=== PATIENT | female | born 1995 | race Caucasian/White ===

== ENCOUNTER 2022-11-30 10:09 | Emergency (ER) | payer OTHER, SELFPAY ==
--- NOTE | ~2022-11-30 | US_ITS ---
EXAMINATION: US OB <= 14 weeks fetus DATE: 11/30/2022 11:09 INDICATION: Abdominal pain during TECHNIQUE: Real-time pelvic ultrasound utilizing transabdominal probe was performed. The juan pablo green radiologist was not present for the study. COMPARISON: None. FINDINGS: The uterus measures 10.8 x 6.5 x 7.9 cm. There is an intrauterine gestational sac. A yolk sac and fe yfn pole are identified. The crown rump length measures 5.9 cm, which correlates with an estimated ge stational age of 12 weeks and 3 days. heart motion is identified measuring 169 beats per minute (bpm) by M-mode Doppler. The right ovary is not visualized. The left ovary measures 4.0 x 1.6 x 1.7 cm. Vascular flow identifi ed in the left ovary on color Doppler. There is no free fluid in the pelvis. IMPRESSION: 1. Single living fetus with heart rate of 169 bpm. 2. Gestational age by ultrasound of 12 weeks 3 day(s) +/- 1 week and 1 day with ultrasound estimated date of delivery (JAYLAN) of 06/11/2023. Reviewed, dictated and finalized at location A. IMPRESSION: 1. Single living fetus with heart rate of 169 bpm. 2. Gestational age by ultrasound of 12 weeks 3 day(s) +/- 1 week and 1 day wit h ultrasound estimated date of delivery (JAYLAN) of 06/11/2023.
[2022-11-30 10:13] VITALS: BP 137/73; PULSE 101; RESP 20; TEMP 36.2; O2SAT 100
--- NOTE | 2022-11-30 10:29 | ED.NAVMDI ---
HPI - Nausea/Vomiting/Diarrhea General Chief complaint: Nausea/Vomiting/Diarrhea Stated complaint: 12 wks preg, n/v Time Seen by Provider: 11/30/22 10:16 History of Present Illness HPI Narrative: Patient is a 27-year-old female who is currently about 12 weeks here for evaluation of nausea and vomiting. Patient states she has been unable to tolerate any p.o. over the past 12 hours and has vomited about 15 times. She has attempted Zofran without relief. Currently also being treated for UTI by her MESH CUTTER. Is having diffuse lower abdominal pain. She contacted her AUTO PHONE INSTALLER Dr. Peterson who recommended ED eval. She denies any vaginal bleeding, dysuria, back pain, fevers or chills, diarrhea. She has had an ultrasound that confirms IUP. Related Data Allergies Allergy/AdvReac Type Severity Reaction Status Date / Time No Known Allergies Allergy Verified 11/30/22 10:23 Review of Systems Review of Systems: Gen.: Denies fevers or chills Eyes: Denies eye pain or visual change ENT: Denies congestion Respiratory: Denies shortness of breath or cough CV: Denies chest pain or palpitations GI: Reports nausea and vomiting denies burning, urgency, frequency or hematuria Musculoskeletal: Denies back pain or muscle pain Neuro: Denies numbness, tingling, weakness or focal weakness Skin: Denies rash Except as documented, all other systems reviewed and negative Exam Narrative: APPEARANCE: Well appearing, no pain in distress, well-nourished. Head: Normocephalic and atraumatic. EYES: PERRLA/EOMI, conjunctivae clear NOSE: No nasal drainage EARS: External ear normal in appearance THROAT: Oropharynx is clear. Mucous membranes are moist. NECK: Supple. No adenopathy, no masses. RESPIRATORY: Airway patent, respirations nonlabored. Clear to auscultation bilaterally, no rales, rhonchi, wheezing. CARDIOVASCULAR: Regular rate and rhythm without murmurs, rubs, or gallops. ABDOMINAL: Normoactive bowel sounds. Soft, nontender, nondistended. No rebound tenderness or guarding. MUSCULOSKELETAL: Extremities are warm and well-perfused. Moves all extremities well. No edema. NEURO: Normal speech. No focal neurologic deficits. SKIN: Skin is warm and dry. No rashes. PSYCHIATRIC: Normal affect/mood. Course Vital Signs Vital signs: Vital Signs Temperature 97.2 F L 11/30/22 10:13 Pulse Rate 101 H 11/30/22 10:13 Respiratory Rate 20 11/30/22 10:13 Blood Pressure 137/73 11/30/22 10:13 Pulse Oximetry 100 11/30/22 10:13 Oxygen Delivery Room Air 11/30/22 10:13 Temperature 97.2 F L 11/30/22 10:13 Pulse Rate 68 11/30/22 12:24 Respiratory Rate 16 11/30/22 12:24 Blood Pressure 116/72 11/30/22 12:24 Pulse Oximetry 100 11/30/22 12:24 Oxygen Delivery Room Air 11/30/22 10:13 MDM - Nausea/Vomiting/Diarrhea MDM Narrative Medical decision making narrative: 27-year-old G1, P0 female who is currently 12 weeks here for evaluation of intractable nausea and vomiting over the past 3 days. Patient is nontoxic in appearance and has normal vital signs. Unable to Doppler heart tones at bedside which may be normal for 12 weeks but given patient's presence of mild abdominal pain and symptoms today a formal ultrasound was ordered which was normal. Patient has a white count of 11.4, basic labs otherwise unremarkable. She is being treated as an outpatient with Keflex for UTI, her urine does show evidence of this with bacteria, white blood cells and leuks. Patient was given 2 L of fluids, Reglan and Benadryl with improvement of her symptoms, able to tolerate p.o.. Spoke with Dr. Peterson, patient's MESH CUTTER, agrees with plan for outpatient Reglan and follow-up. Return precautions were discussed with patient who voiced understanding. Lab Data 11/30/22 10:32 11/30/22 10:32 Labs: Lab Results 11/30/22 11/30/22 11/30/22 Range/Units 10:32 10:32 10:32 WBC 11.4 H (4.5-10.0) K/mm3 RBC 4.73
[2022-11-30] MEDS: LACTATED RINGERS 1,000 ML 999 ML IV CONT ×2 (10:40→11:25)
[2022-11-30 10:41] LABS: Basophils Absolute Auto 0.1 K/mm3 (0.0-0.1); Basophils Percent Auto 0.5 % (0.2-1.2); Eosinophils Percent Auto 0.3 % (0-4.4); Hematocrit 41.8 % (37.0-47.0); Immature Granulocyte Absolute 0.04 K/mm3 (0.00-0.031); Immature Granulocyte Percent A 0.4 % (0-0.5); Lymphocytes Percent Auto 10.5 % (18.3-44.2); Mean Corpuscular HGB Conc 33.5 g/dl (32-36); Mean Corpuscular Hemoglobin 29.6 pg (26-34); Mean Corpuscular Volume 88.4 fl (80-100); Mean Platelet Volume 9.5 fl (7.4-10.4); Monocytes Absolute Auto 0.5 K/mm3 (0.1-0.6); Neutrophils Absolute Auto 9.6 K/mm3 (1.3-6.7); Neutrophils Percent Auto 84.3 % (45.5-73.1); Platelet Count Result 387 k/mm3 (150-375); Red Blood Count 4.73 M/mm3 (4.2-5.4); Red Cell Distribution Width 12.6 % (11.5-14.5); White Blood Count 11.4 K/mm3 (4.5-10.0)
[2022-11-30] MEDS: diphenhydrAMINE HCl INJ 50 MG/ML VIAL 12.5 MG IV PUSH (10:41)
[2022-11-30] MEDS: METOCLOPRAMIDE HCL INJ 10 MG/2 ML VIAL IV PUSH (10:43)
[2022-11-30 10:57] LABS: Alanine Aminotransferase 18 U/L (6-35); Alkaline Phosphatase 95 U/L (38-126); Anion Gap 7 mmol/L (8-16); Aspartate Amino Transferase 21 U/L (14-36); Bilirubin,Total 0.5 mg/dL (0.2-1.3); Blood Urea Nitrogen 7 mg/dL (7-17); Carbon Dioxide 22 mmol/L (22-30); Chloride 110 mmol/L (98-107); Estimated CRCL calculation 153 ml/min; Estimated Glomerular Filt Rate > 60; Glucose 88 mg/dL (65-110); Potassium 3.9 mmol/L (3.4-5.0); Sodium 139 mmol/L (137-145)
[2022-11-30 11:17] LABS: Appearance Urine Turbid (Clear); Bacteria Urine 4+ /hpf; Bilirubin Urine 1+ (Negative); Blood Urine Negative (Negative); Color Urine Dark Yellow (Yellow); Glucose Urine UA Negative (Negative); Ketones Urine 3+ mg/dL (Negative); Leukocyte Esterase Ur Trace LEU/UL (Negative); Need Manual Microscopic Reviewed; Nitrate Urine Negative (Negative); Protein Urine 1+ mg/dL (Negative); Specific Grav Ur 1.034 (1.001-1.035); Squamous Epithelial Cell Urine Many /hpf (Few); WBC Urine 21-50 /hpf; pH Urine 5.5 (5.0-9.0)
[2022-11-30 11:27] VITALS: BP 126/66; PULSE 66; RESP 16; O2SAT 99
[2022-11-30 11:32] LABS: Add Urine Microscopic? YES
[2022-11-30 12:24] VITALS: BP 116/72; PULSE 68; RESP 16; O2SAT 100
[2022-11-30 12:59] VITALS: BP 118/70; PULSE 66; RESP 16; O2SAT 99
== END 2022-11-30 13:01 | disposition home or self-care (01) ==
PROVIDERS: Emergency Provider Physician Assistant; PCP Obstetrics & Gynecology
DX: O21.9 Vomiting of pregnancy, unspecified (principal); Z3A.12 12 weeks gestation of pregnancy
CPT/HCPCS: 36415; 76801; 80053; 81001; 84702; 85025; 87086; 87147; 87181; 87186; 96361; 96374; 96375; 99284; J1200; J2765; J7120

== ENCOUNTER 2022-12-07 09:41 | Outpatient (RCR) | payer OTHER, SELFPAY ==
[2022-12-07] MEDS: RHO(D) IMMUNE GLOBULIN 300 MCG/2 ML SYRINGE IM (18:56)
== END 2022-12-07 10:00 | disposition home or self-care (01) ==
LOC: ANHLAB 09:41
PROVIDERS: PCP Obstetrics & Gynecology; Visit Provider Obstetrics & Gynecology
DX: O20.0 Threatened abortion (principal); Z29.13 Encounter for prophylactic Rho(D) immune globulin; O36.0190 Maternal care for anti-D [Rh] antibodies, unspecified trimester, not applicable or unspecified; Z3A.00 Weeks of gestation of pregnancy not specified
CPT/HCPCS: 36415; 85461; 86850; 86900; 86901; 90384; 96372; J2790

== ENCOUNTER 2023-03-21 11:25 | Outpatient (RCR) | payer OTHER, SELFPAY ==
[2023-03-21] MEDS: RHO(D) IMMUNE GLOBULIN 300 MCG/2 ML SYRINGE IM (19:52)
== END 2023-06-19 23:59 | disposition home or self-care (01) ==
LOC: ANHLAB 11:25
PROVIDERS: PCP Obstetrics & Gynecology; Visit Provider Obstetrics & Gynecology
DX: Z29.13 Encounter for prophylactic Rho(D) immune globulin (principal); O36.0190 Maternal care for anti-D [Rh] antibodies, unspecified trimester, not applicable or unspecified; Z3A.00 Weeks of gestation of pregnancy not specified
CPT/HCPCS: 36415; 85461; 86850; 86900; 86901; 90384; 96372; J2790

== ENCOUNTER 2023-06-02 12:37 | Outpatient (CLI) | payer OTHER, SELFPAY ==
[2023-06-02] VITALS (13 sets, daily range): BP systolic 111–130; BP diastolic 64–81; PULSE 65–87; BMI 45.1
[2023-06-02 13:30] LABS: Appearance Urine Cloudy (Clear); Bacteria Urine 3+ /hpf; Bilirubin Urine Negative (Negative); Blood Urine Negative (Negative); Color Urine Yellow (Yellow); Glucose Urine UA Negative (Negative); Ketones Urine Negative (Negative); Leukocyte Esterase Ur 1+ LEU/UL (Negative); Nitrate Urine Negative (Negative); Non Pathogenic Casts 0-2; Protein Urine Trace mg/dL (Negative); Specific Grav Ur 1.024 (1.001-1.035); Squamous Epithelial Cell Urine Many /hpf (Few); WBC Urine 21-50 /hpf
[2023-06-02 13:39] LABS: Add Urine Microscopic? YES
[2023-06-02] MEDS: ACETAMINOPHEN/BUTALBITAL/CAFFEINE 325-50-40 MG TABLET (FIORICET) 2 TAB PO (13:48)
--- NOTE | 2023-06-02 15:10 | PC.NURSE ---
Dr. Peterson returned page and informed headache is down to a 1 out of 10 after Fioricet, UA shows trace protein- discussed other UA results and BP's remain normal. OK to discharge to home; pt to keep office appointment on 06/06/23.
== END 2023-06-02 15:19 | disposition home or self-care (01) ==
LOC: ANHOBOP 12:42 → ANHOBPP 12:42
PROVIDERS: PCP Family Medicine; Visit Provider Obstetrics & Gynecology
DX: R51.9 Headache, unspecified (principal)
CPT/HCPCS: 59025; 81001; 87086; 87088; 99199; A9270

== ENCOUNTER 2023-06-10 12:57 | Inpatient (IN) | payer OTHER, SELFPAY ==
[2023-06-10] VITALS (127 sets, daily range): BP systolic 80–201; BP diastolic 27–173; PULSE 66–257; RESP 16; TEMP 36.6; O2SAT 91–100; BMI 44.4
--- NOTE | ~2023-06-10 | XR_ITS ---
EXAMINATION: XR abdomen/kub 1V INDICATION: Sponge and instrument count from section TECHNIQUE: Supine views of the abdomen were obtained on 2 radiographs. COMPARISON: None FINDINGS: No radiopaque foreign body is identified. A large amount of free intraperitoneal gas likely relates to section. IMPRESSION: 1. No radiopaque foreign body identified. Reviewed, dictated and finalized at location F.
--- NOTE | 2023-06-10 13:59 | LDADM ---
This patient, Wandy Walters, was admitted to Labor/Delivery/Recovery 105 on 06/10/23 at 12:57. Plans for labor, pain management and were discussed with patient. Patient/family oriented to hospital policies and general routines including ID bracelet, bed and alarms, visiting hours, pain management, procedures, bathroom and other care routines, personal items, smoking policy, room service/diet and guest tray routines, security routines, and visiting hours. Patient/Family are encouraged to report perceived risks to care and to ask questions if they do not understand what they are told or what they should do. See OBIX for further documentation.
[2023-06-10] MEDS: LACTATED RINGERS 500 ML 999 ML IV CONT (14:09)
[2023-06-10 14:11] LABS: Basophils Absolute Auto 0.1 K/mm3 (0.0-0.1); Basophils Percent Auto 0.4 % (0.2-1.2); Eosinophils Absolute Auto 0.1 K/mm3 (0-0.3); Eosinophils Percent Auto 0.5 % (0-4.4); Hemoglobin 10.8 g/dL (12.0-15.0); Immature Granulocyte Absolute 0.07 K/mm3 (0.00-0.031); Immature Granulocyte Percent A 0.6 % (0-0.5); Lymphocytes Absolute Auto 1.24 K/mm3 (0.9-3.2); Lymphocytes Percent Auto 10.4 % (18.3-44.2); Mean Corpuscular HGB Conc 30.9 g/dl (32-36); Mean Corpuscular Hemoglobin 25.5 pg (26-34); Mean Corpuscular Volume 82.7 fl (80-100); Mean Platelet Volume 10.1 fl (7.4-10.4); Monocytes Absolute Auto 0.8 K/mm3 (0.1-0.6); Monocytes Percent Auto 6.4 % (2.6-8.5); Neutrophils Absolute Auto 9.7 K/mm3 (1.3-6.7); Neutrophils Percent Auto 81.7 % (45.5-73.1); Platelet Count Result 443 k/mm3 (150-375); Red Blood Count 4.23 M/mm3 (4.2-5.4); Red Cell Distribution Width 13.3 % (11.5-14.5); White Blood Count 11.9 K/mm3 (4.5-10.0)
--- NOTE | 2023-06-10 14:12 | WPDANESEPP ---
Anes - Eval Pre Procedure Procedure: Labor Epidural Date/Time: 06/10/23 14:12 Surgeon: Kristen Preop Diagnosis: Labor Pain Pre Op Diagnosis: Labor Patient Data Age: 28 Gender: F Height: 1.68 m Weight: 125 kg Last Vital Signs Pulse 96 06/10/23 13:46 BP 145/120 H 06/10/23 13:46 O2 Del Method Room Air 06/10/23 13:54 Allergies Allergy/AdvReac Type Severity Reaction Status Date / Time No Known Allergies Allergy Verified 05/21/23 12:59 Home Medications Medication Instructions Recorded Confirmed Type fluoxetine 20 mg tablet 20 mg PO DAILY 05/21/23 06/02/23 History vit#24-iron amino acid 1 tablet PO DAILY 05/21/23 06/02/23 History chelat-folic acid 30 mg-975 mcg tablet acetaminophen 500 mg tablet 500 mg PO Q6H PRN Headache 06/02/23 06/02/23 History (Tylenol Extra Strength) Laboratory Tests 06/10/23 14:06 WBC Pending RBC Pending Hgb Pending Hct Pending MCV Pending MCH Pending MCHC Pending RDW Pending Plt Count Pending MPV Pending Immature Gran % (Auto) Pending Neut % (Auto) Pending Lymph % (Auto) Pending [place] % (Auto) Pending Eos % (Auto) Pending Baso % (Auto) Pending Lymph # (Auto) Pending [place] # (Auto) Pending Eos # (Auto) Pending Baso # (Auto) Pending Abs Immat Gran (auto) Pending Absolute Neuts (auto) Pending Absolute Nucleated RBC Pending Nucleated RBC % Pending RPR Pending : gestational age (, JAYLAN 06/13/23) Patient hx anesthesia problems: none Family hx anesthesia problems: none Results Review: All pre-operative results and documents have been reviewed as part of the pre-operative evaluation. [facility], [facility] Family History Family History Grandparent Breast cancer Brain tumor Other Alzheimer's dementia Social History Social History Smoking status: Never smoker Second hand tobacco smoke exposure: No Substance use: never Lack of Transportation: No Lack of Food: Never True Current Housing: I Have Housing Concerned About Future Housing: No Difficulty Paying Gas/Electric Bills: No Difficulty Paying for Meds: No Currently Unemployed: No Education: Bachelor's Degree Difficulty w/ Childcare or Family Care: No Spiritual care concerns: No Exam Day of Procedure 06/10/23 14:12 Patient weight: obese Heart: regular rate and rhythm Lungs: normal air movement Airway: Mallampati scale class II Neurological: alert and oriented
[2023-06-10] MEDS: LACTATED RINGERS 1,000 ML 125 ML IV CONT (15:09)
--- NOTE | 2023-06-10 16:02 | PM.IMHP ---
H&P: HPI History of Present Illness Date/Time: 06/10/23 16:02 Chief Complaint: Contractions Narrative: 28 y/o G1 at 39 4/7 weeks gestation here with contractions since this morning. Cervix was closed in office earlier this week, is 4 cm dilated on admission today. GBS neg. Rh neg, got Rhogam. Anxiety, on Prozac 20 mg daily. Review of Systems Review of Systems: All systems reviewed & are unremarkable except as noted in HPI and below PMFSH Past Medical History Medical History Anxiety Obesity affecting Surgical History Surgical History Gastric bypass status for obesity H/O gastric sleeve Family History Family History Grandparent Breast cancer Brain tumor Other Alzheimer's dementia Social History Social History Smoking status: Never smoker Second hand tobacco smoke exposure: No Substance use: never Lack of Transportation: No Lack of Food: Never True Current Housing: I Have Housing Concerned About Future Housing: No Difficulty Paying Gas/Electric Bills: No Difficulty Paying for Meds: No Currently Unemployed: No Education: Bachelor's Degree Difficulty w/ Childcare or Family Care: No Spiritual care concerns: No Meds Home Medications and Allergies Home Medications Medication Instructions Recorded Confirmed Type fluoxetine 20 mg tablet 20 mg PO DAILY 05/21/23 06/02/23 History vit#24-iron amino acid 1 tablet PO DAILY 05/21/23 06/02/23 History chelat-folic acid 30 mg-975 mcg tablet acetaminophen 500 mg tablet 500 mg PO Q6H PRN Headache 06/02/23 06/02/23 History (Tylenol Extra Strength) Allergies Allergy/AdvReac Type Severity Reaction Status Date / Time No Known Allergies Allergy Verified 05/21/23 12:59 Vital Signs Vital Signs - 24 hr 06/10/23 13:46 06/10/23 14:08 06/10/23 14:21 Temperature 36.6 C Pulse Rate 96 Blood Pressure 145/120 H Pulse Oximetry 97 Oxygen Delivery 06/10/23 14:23 06/10/23 14:25 06/10/23 14:29 Temperature Pulse Rate 80 74 Blood Pressure 131/88 132/86 Pulse Oximetry 100 Oxygen Delivery 06/10/23 14:30 06/10/23 13:54 Temperature Pulse Rate Blood Pressure Pulse Oximetry 100 Oxygen Delivery Room Air Exam Const: Orientation/consciousness: patient oriented x3 Other: Well-developed, well-nourished female in no acute distress. Neck: Thyroid: thyroid normal Lymphatic: no lymphadenopathy noted (in neck, axilla or inguinal nodes) Resp: Effort & Inspection: normal respiratory effort Auscultation: clear to auscultation bilaterally Cardio: Rate: regular rate Rhythm: regular rhythm Heart sounds: S1 normal heart sound present and S2 normal heart sound present GI: Other: ABD: Soft, nontender, nondistended, gravid. No guarding or rebound tenderness. No hepatosplenomegaly. NST reactive initially, now with variable decelerations. TOCO: contractions difficult to monitor. Vertex presentation on bedside transabdominal ultrasound by me. : General: Yes no CVA tenderness Other: Cervix 5/80/-2. AROM with thick meconium. IUPC and FSE placed. Back/Spine/Pelvis: Back: no CVA tenderness Skin: General skin exam: normal color and no rashes or lesions noted Neuro: General: patient oriented x3 Extrem: Other: Extremities: nontender with no edema Psych: Mental Status: mental status grossly normal Affect: normal affect H&P: Results Labs Labs: Short CBC 06/10/23 Range/Units 14:06 WBC 11.9 H (4.5-10.0) K/mm3 Hgb 10.8 L D (12.0-15.0) g/dL Hct 35.0 L (37.0-47.0) % Plt Count 443 H (150-375) k/mm3 Assessment and Plan Assessment and plan (1) Term : Code(s): Z34.90 - Encounter for
[2023-06-10] MEDS: SODIUM CHLORIDE 0.9% IV 300 ML 600 ML I-UTERINE (17:51)
[2023-06-10] MEDS: TERBUTALINE SULFATE 1 MG/ML VIAL 0.25 MG SUB-Q ×2 (18:13→18:54)
--- NOTE | 2023-06-10 20:17 | PM.OBPNLAB ---
Pain Control Date/time seen: 06/10/23 20:17 Comments: Comfortable with epidural Pelvic Exam Dilation (cm): 7 Effacement (%): 80 station: -1 Contractions Contraction frequency: 3 Contraction pattern: Regular Status Comments: NST initially reactive, now with variable decelerations with late timing; decelerations have not improved with amnioinfusion, position change, or terbutaline administration. Assessment and Plan Comments: A: Nonreassuring status. P: I recommended primary . She understands risks of surgery to include risks of anesthesia, risks of pain, infection, bleeding, blood products, thromboembolic phenomena and damage to adjacent structures such as bowel, bladder, ureters, blood vessels and nerves. She understands all these risks and elects to proceed with surgery.
[2023-06-10] MEDS: ceFAZolin 3 GM/D5W 100 ML 100 ML IVPB (20:34)
[2023-06-10] MEDS: ONDANSETRON INJ 4 MG/2 ML VIAL IV PUSH (20:36)
[2023-06-10] MEDS: KETOROLAC 15 MG/ML VIAL (*BKC) IV PUSH (20:44)
--- NOTE | 2023-06-10 20:44 | WPDANESEPPF ---
Anes - Initial Pre Proc Eval Procedure: Operation Date: 06/10/23 20:15 Proposed Procedures p Section - Stas Peterson MD Date/Time: 06/10/23 20:44 Surgeon: Stas Peterson MD Pre Op Diagnosis: Labor Patient Data Age: 28 Gender: F Height: 1.68 m Weight: 125 kg Last Vital Signs Temp 36.6 C 06/10/23 18:00 Pulse 122 H 06/10/23 20:15 BP 113/58 L 06/10/23 20:15 Pulse Ox 100 06/10/23 20:20 O2 Del Method Room Air 06/10/23 13:54 Allergies Allergy/AdvReac Type Severity Reaction Status Date / Time No Known Allergies Allergy Verified 05/21/23 12:59 Home Medications Medication Instructions Recorded Confirmed Type fluoxetine 20 mg tablet 20 mg PO DAILY 05/21/23 06/02/23 History vit#24-iron amino acid 1 tablet PO DAILY 05/21/23 06/02/23 History chelat-folic acid 30 mg-975 mcg tablet acetaminophen 500 mg tablet 500 mg PO Q6H PRN Headache 06/02/23 06/02/23 History (Tylenol Extra Strength) Laboratory Tests 06/10/23 14:06 WBC 11.9 H K/mm3 (4.5-10.0) RBC 4.23 M/mm3 (4.2-5.4) Hgb 10.8 L D g/dL (12.0-15.0) Hct 35.0 L % (37.0-47.0) MCV 82.7 fl (80-100) MCH 25.5 L pg (26-34) MCHC 30.9 L g/dl (32-36) RDW 13.3 % (11.5-14.5) Plt Count 443 H k/mm3 (150-375) MPV 10.1 fl (7.4-10.4) Immature Gran % (Auto) 0.6 H % (0-0.5) Neut % (Auto) 81.7 H % (45.5-73.1) Lymph % (Auto) 10.4 L % (18.3-44.2) [place] % (Auto) 6.4 % (2.6-8.5) Eos % (Auto) 0.5 % (0-4.4) Baso % (Auto) 0.4 % (0.2-1.2) Lymph # (Auto) 1.24 K/mm3 (0.9-3.2) [place] # (Auto) 0.8 H K/mm3 (0.1-0.6) Eos # (Auto) 0.1 K/mm3 (0-0.3) Baso # (Auto) 0.1 K/mm3 (0.0-0.1) Abs Immat Gran (auto) 0.07 H K/mm3 (0.00-0.031) Absolute Neuts (auto) 9.7 H K/mm3 (1.3-6.7) Absolute Nucleated RBC 0.0 K/mm3 (0.0-0.012) Nucleated RBC % 0.0 % (0.0-0.2) RPR Pending Blood Type A Negative Antibody Screen Negative : gestational age (, JAYLAN 06/13/23) Patient hx anesthesia problems: none Family hx anesthesia problems: none Results Review: All pre-operative results and documents have been reviewed as part of the pre-operative evaluation. [facility] Past Medical History Medical History Anxiety Obesity affecting Surgical History Surgical History Gastric bypass status for obesity H/O gastric sleeve Family History Family History Grandparent Breast cancer Brain tumor Other Alzheimer's dementia Social History Social History Smoking status: Never smoker Second hand tobacco smoke exposure: No Substance use: never Lack of Transportation: No Lack of Food: Never True Current Housing: I Have Housing Concerned About Future Housing: No Difficulty Paying Gas/Electric Bills: No Difficulty Paying for Meds: No Currently Unemployed: No Education: Bachelor's Degree Difficulty w/ Childcare or Family Care: No Spiritual care concerns: No Anes - Eval Final PreProcedure Day of Procedure 06/10/23 20:44 Patient weight: morbidly obese Heart: regular rate and rhythm Lungs: clear to auscultation and normal air movement Airway: Mallampati scale class II Neurological: alert and oriented Last oral intake: >/= 8 hours ASA classification: III Emergent: yes Anesthetic plan: proceed Anesthesia type and monitoring: regional epidural and standard monitoring Results Review: All pre-operative results and documents have been reviewed as part of the pre-operative evaluation. Informed Consent: The patient's anesthetic plan and its attendant risks and benefits were discussed with the patient/family/POA. Questions were solicited and
[2023-06-10] MEDS: fentaNYL CITRATE INJ (*CRX) 100 MCG/2 ML VIAL 50 MCG IV PUSH (20:52)
[2023-06-10] MEDS: AZITHROMYCIN 500 MG/NS 250 ML 500 MG/250 ML BAG 250 MG IVPB (21:00)
--- NOTE | 2023-06-10 21:14 | P.PCNOB_ITS ---
OB - Delivery Note Procedure Delivery date: 06/10/23 Procedure: Procedures Operation Date: 06/10/23 20:15 <No data on this case meets the specified criteria> Primary low transverse delivery Intrapartal Events: Non-Reassuring Status Induction method: None Delivery augmentation: Rupture of Membranes Delivery monitor: External FHT, External Uterine, Internal FHT and Internal Uterine Route of delivery: Specimen: Yes (cord blood, placenta) Quantitative Blood Loss (ml): 595 Anesthesia type: Epidural Disposition: PACU Complications: None Narrative: Preop Dx: IUP at 39 4/7 weeks, labor, nonreassuring heart rate tracing Postop Dx: Same Findings: Thick meconium. Otherwise, normal-appearing placenta. Uterus, tubes and ovaries unremarkable. Techniques: The patient was taken to the operating room where FHR was found to be 58. She was quickly prepared and draped in the usual sterile fashion in dorsal supine position with a leftward tilt. She had received cefazolin preoperatively. Epidural anesthesia was found to be adequate. A Pfannenstiel skin incision was made and carried through to the underlying layer of the fascia. The fascia was incised in the midline and the incision was extended l aterally. The fascia was dissected free of the underlying rectus muscles. The rectus muscles were in the midline. The peritoneum was identified, tented up and entered sharply. The peritoneal incision was extended superiorly and inferiorly with good visualization of the bladder. The bladder blade was placed. The vesicouterine peritoneum was identified, tented up and entered sharply. The incision was extended laterally and the bladder flap was developed. The bladder blade was replaced. The uterus was then incised sharply in a transverse fashion along the lower uterine segment. The incision was extended laterally. The infant's head was delivered atraumatically to the sterile field, followed by the body. The nose and mouth were bulb suctioned and the cord was clamped and cut. The was handed off the field. Cord blood was collected. The placenta was removed manually and was passed off the field. The uterus was exteriorized and cleared of all clots and debris. The uterine incision was reapproximated using 0 Monocryl in a running, locked fashion. Excellent hemostasis resulted as did excellent reapproximation of the normal anatomy. The uterus was returned the abdomen. The pelvis was irrigated copiously with warmed normal saline. Rigorous hemostasis was assured. The fascial layer was reapproximated using 0 Vicryl in a running fashion. The skin was closed with a running, subcuticular stitch of 4 0 Vicryl. Dermaflex was applied externally. Sponge, lap, needle and instrument counts were not obtained because of the emergent nature of the procedure. Postop x ray showed no retained material. The patient was taken to the recovery room in stable condition. The infant was taken to the nursery. I was present and scrubbed the entire procedure. [place] [facility] Date of : 06/10/23 Time of : 20:35 Weeks of gestation at delivery: 39 gender: Male Weight (pounds): 6 Weight (ounces): 15 presentation: vertex Placenta delivery description: Manual Removal and Normal Configuration Cord Vessel Description: 3 Vessels score one minute: 2 score five minutes: 5 score ten minutes: 7
--- NOTE | 2023-06-10 21:22 | P.DS_ITS ---
DS: Admitting Diagnosis Discharge Date 06/12/23 Admitting Diagnosis IUP at 39 4/7 weeks Labor DS: Discharge Diagnosis Discharge Diagnosis (1) delivery delivered: Code(s): O82 - Encounter for delivery without indication Status: Acute OB - DS: Summary OB Procedures : NST and Ultrasound OB Procedures Intrapartum: OB Procedures: : RHo (D) lg Peripartum Data Procedures: Procedures Operation Date: 06/10/23 20:15 <No data on this case meets the specified criteria> Time Spent with Patient Time attestation: Total time spent providing and/or coordinating discharge services: DS: Data Data Completed and Pending Labs on day of discharge: Labs from last 24 hours 06/10/23 14:06 WBC 11.9 H RBC 4.23 Hgb 10.8 L D Hct 35.0 L MCV 82.7 MCH 25.5 L MCHC 30.9 L RDW 13.3 Plt Count 443 H MPV 10.1 Immature Gran % (Auto) 0.6 H Neut % (Auto) 81.7 H Lymph % (Auto) 10.4 L [place] % (Auto) 6.4 Eos % (Auto) 0.5 Baso % (Auto) 0.4 Lymph # (Auto) 1.24 [place] # (Auto) 0.8 H Eos # (Auto) 0.1 Baso # (Auto) 0.1 Abs Immat Gran (auto) 0.07 H Absolute Neuts (auto) 9.7 H Absolute Nucleated RBC 0.0 Nucleated RBC % 0.0 RPR Pending Blood Type A Negative Antibody Screen Negative Discharge Plan Discharge Attending physician on discharge: Stas Peterson Discharging Clinician: Stas Peterson Patient Disposition: Home, Self-Care Activity: may shower, may drive after 2 weeks and pelvic rest Diet: regular Wound Care Instructions: incision open to air Discharge Instructions: Call or return if temperature above 100.4? F, increased abdominal pain, increased vaginal bleeding or any new problems. Stand Alone Forms: General Discharge Information Follow-up/Referrals: Stas Peterson MD [Physician] - 4 Weeks Discharge Medications: New ibuprofen 600 mg tablet 600 mg PO Q6H PRN (Reason: cramps) Qty: 30 0RF hydrocodone-acetaminophen 5-325 mg tablet 1 - 2 tablet PO Q6H PRN (Reason: pain) Qty: 30 0RF ferrous sulfate 325 mg (65 mg iron) tablet 325 mg PO DAILY Qty: 30 0RF Continued Complete 30-975 mg-mcg Tablet 1 tablet PO DAILY fluoxetine 20 mg Tablet 20 mg PO DAILY acetaminophen [Tylenol Extra Strength] 500 mg Tablet 500 mg PO Q6H PRN (Reason: Headache) Date of admission: 06/10/23 12:57 Primary Care Provider: Ingrid,Chad Krishnan Admitting Provider: Stas Peterson Attending physician on admission: Stas Peterson Condition: Stable
[2023-06-10] MEDS: OXYTOCIN 30 UNITS/NS 500 ML 30 UNITS/500 ML BAG 125 UNITS IV CONT (22:00)
--- NOTE | 2023-06-10 23:42 | OBPPTRN ---
Patient transferred to post room #282 via ( inpatient bed ). Support person present. Oriented to unit, room, information board, rooming in, admission packet and security measures. Patient verbalizes understanding.
[2023-06-11] VITALS: BP 116/76; PULSE 85; RESP 18; TEMP 37.1; O2SAT 97
[2023-06-11] MEDS: HYDROcodone/acetaminophen (*CRX) 5-325 MG TABLET 1 TAB PO ×2 (03:16→12:30)
[2023-06-11] MEDS: IBUPROFEN 600 MG TABLET PO ×3 (03:16→19:28)
[2023-06-11 03:54] VITALS: BP 124/80; PULSE 92; RESP 18; TEMP 36.6; O2SAT 97
[2023-06-11 05:25] LABS: Basophils Absolute Auto 0.1 K/mm3 (0.0-0.1); Basophils Percent Auto 0.5 % (0.2-1.2); Eosinophils Percent Auto 0.2 % (0-4.4); Hematocrit 32.6 % (37.0-47.0); Hemoglobin 9.6 g/dL (12.0-15.0); Immature Granulocyte Absolute 0.19 K/mm3 (0.00-0.031); Immature Granulocyte Percent A 0.8 % (0-0.5); Lymphocytes Absolute Auto 0.92 K/mm3 (0.9-3.2); Lymphocytes Percent Auto 3.9 % (18.3-44.2); Mean Corpuscular HGB Conc 29.4 g/dl (32-36); Mean Corpuscular Hemoglobin 25.5 pg (26-34); Mean Corpuscular Volume 86.5 fl (80-100); Mean Platelet Volume 10.6 fl (7.4-10.4); Monocytes Absolute Auto 1.4 K/mm3 (0.1-0.6); Neutrophils Absolute Auto 21.1 K/mm3 (1.3-6.7); Neutrophils Percent Auto 88.6 % (45.5-73.1); Platelet Count Result 406 k/mm3 (150-375); Red Blood Count 3.77 M/mm3 (4.2-5.4); Red Cell Distribution Width 13.5 % (11.5-14.5); White Blood Count 23.8 K/mm3 (4.5-10.0)
[2023-06-11 05:47] LABS: Platelet Estimate Increased (Adequate)
[2023-06-11 05:48] LABS: Anisocytosis 1+ (NORMAL); Crenated RBC 1+ (NORMAL); Hypochromasia 1+ (NORMAL); Microcytosis 1+ (NORMAL); Schistocytes None Seen (NORMAL)
[2023-06-11] MEDS: SIMETHICONE 80 MG TAB.CHEW PO ×2 (07:30→17:45)
[2023-06-11] MEDS: MULTIVIT/MIN/PREN/FOL AC/IRON TABLET 1 TAB PO (07:30)
[2023-06-11] MEDS: POLYSACCHARIDE IRON COMPLEX 150 MG CAPSULE PO ×2 (07:30→17:45)
[2023-06-11] MEDS: FLUoxetine HCL 20 MG CAPSULE PO (07:30)
[2023-06-11] MEDS: DOCUSATE SODIUM 100 MG CAPSULE PO ×2 (07:30→17:45)
[2023-06-11] MEDS: HYDROcodone/acetaminophen (*CRX) 10-325 MG TABLET 1 TAB PO ×2 (07:30→17:45)
[2023-06-11 07:45] VITALS: BP 114/71; PULSE 67; RESP 14; TEMP 36.6
--- NOTE | 2023-06-11 08:29 | P.PNOB_ITS ---
OB - PN: Subj Subjective Date/time seen: 06/11/23 08:29 Narrative: Pain OK. Tolerating diet. Baby was transferred to [facility]. OB - PN: Obj Data Labs 06/11/23 03:25 Labs: Laboratory Results - last 24 hr 06/10/23 06/11/23 14:06 03:25 WBC 11.9 H 23.8 H RBC 4.23 3.77 L Hgb 10.8 L D 9.6 L Hct 35.0 L 32.6 L MCV 82.7 86.5 MCH 25.5 L 25.5 L MCHC 30.9 L 29.4 L RDW 13.3 13.5 Plt Count 443 H 406 H MPV 10.1 10.6 H Immature Gran % (Auto) 0.6 H 0.8 H Neut % (Auto) 81.7 H 88.6 H Lymph % (Auto) 10.4 L 3.9 L [place] % (Auto) 6.4 6.0 Eos % (Auto) 0.5 0.2 Baso % (Auto) 0.4 0.5 Lymph # (Auto) 1.24 0.92 [place] # (Auto) 0.8 H 1.4 H Eos # (Auto) 0.1 0.0 Baso # (Auto) 0.1 0.1 Abs Immat Gran (auto) 0.07 H 0.19 H Absolute Neuts (auto) 9.7 H 21.1 H Absolute Nucleated RBC 0.0 0.0 Nucleated RBC % 0.0 0.0 Platelet Estimate Increased Hypochromasia 1+ Anisocytosis 1+ Microcytosis 1+ Crenated Cell 1+ Schistocytes None seen Blood Type A Negative Antibody Screen Negative Imaging Radiologist's impression: Impressions Abdomen X-Ray 06/10/23 21:22 IMPRESSION: 1. No radiopaque foreign body identified. OB - PN A/P Plan Comments: A: POD#1, doing well. P: Routine care. Plan home tomorrow. Exam Narrative: AVSS I/O OK ABD soft, nontender, fundus firm. Incision c/d/i. EXT nontender
--- NOTE | 2023-06-11 10:19 | WPDANLDPN2 ---
Anes-Prog Note L&D Date/Time: 06/11/23 10:19 Comfortable throughout: labor and section Neuraxial method: epidural Epidural/Spinal procedure site: clean & non-tender Neuro status: Neuro function grossly intact. Cardiovascular status: normal Respiratory status: normal Airway patency: baseline Mental status: baseline Post-Op hydration status: normal Vital Signs: Last Vital Signs Temp 36.6 C 06/11/23 07:45 Pulse 67 06/11/23 07:45 Resp 14 06/11/23 07:45 BP 114/71 06/11/23 07:45 Pulse Ox 97 06/11/23 03:54 O2 Del Method Room Air 06/10/23 22:30 Pain score (VAS): 3/10 I/O: Intake & Output 06/10/23 06/11/23 06/11/23 23:59 07:59 15:59 Intake Total 600 Output Total 100 Balance -100 600 Post-procedural complaints: none Patient feedback: Patient satisfied with anesthetic care.
--- NOTE | 2023-06-11 10:20 | WPDANLDNPN2 ---
Anes-Prog Note L&D-Neuraxial Date/Time: 06/11/23 10:20 Neuraxial medications: epidural PF morphine Opiod-related complaints: none Patient feedback: Patient satisfied with post-operative pain management.
[2023-06-11 12:00] VITALS: PULSE 67; RESP 14; O2SAT 97
--- NOTE | 2023-06-11 17:01 | PC.NURSE ---
1330 Pt left unit via wheelchair accompanied by staff to car driven by [email or web address] to visit baby at [facility]. Therapeutic leave form signed.
--- NOTE | 2023-06-11 17:44 | PC.NURSE ---
1745 Pt returned from [facility]. escorted from car to unit by staff via wheelchair. Condition stable.
[2023-06-11 20:00] VITALS: BP 132/90; PULSE 78; RESP 18; TEMP 36.7; O2SAT 98
[2023-06-12] MEDS: HYDROcodone/acetaminophen (*CRX) 10-325 MG TABLET 1 TAB PO (01:48)
[2023-06-12] MEDS: IBUPROFEN 600 MG TABLET PO ×2 (01:49→08:39)
[2023-06-12] MEDS: HYDROcodone/acetaminophen (*CRX) 5-325 MG TABLET 1 TAB PO ×3 (04:34→12:36)
[2023-06-12 08:00] VITALS: BP 132/95; PULSE 73; RESP 16; TEMP 36.7; O2SAT 100
[2023-06-12] MEDS: FLUoxetine HCL 20 MG CAPSULE PO (08:38)
[2023-06-12] MEDS: MULTIVIT/MIN/PREN/FOL AC/IRON TABLET 1 TAB PO (08:38)
[2023-06-12] MEDS: DOCUSATE SODIUM 100 MG CAPSULE PO (08:38)
[2023-06-12] MEDS: POLYSACCHARIDE IRON COMPLEX 150 MG CAPSULE PO (08:38)
--- NOTE | 2023-06-12 10:34 | PM.OBPNVD ---
OB - PN: Subj Subjective Date/time seen: 06/12/23 10:34 Narrative: Pain OK. Tolerating diet. Would like to go home. OB - PN: Obj Data Labs 06/11/23 03:25 Labs: Laboratory Results - last 24 hr 06/12/23 04:38 Blood Type A Negative Antibody Screen TNP Screen Negative Baby's Blood Type A pos Baby's KHURRAM Negative Doses of RhIg Required 1 OB - PN A/P Plan day: 2 Comments: A: POD#2, doing well. P: Home to f/u 4 weeks. Exam Narrative: AVSS ABD soft, nontender, fundus firm. Incision c/d/i. EXT nontender
[2023-06-12] MEDS: RHO(D) IMMUNE GLOBULIN 300 MCG/2 ML SYRINGE IM (11:14)
[2023-06-13 13:36] LABS: Rapid Plasma Reagin Non-Reactive (NonReactive)
== END 2023-06-12 12:40 | disposition home or self-care (01) | DRG 788 ==
LOC: ANHLDR 21:24 → ANHOB2 06-11 00:53
PROVIDERS: Admitting Provider Obstetrics & Gynecology; PCP Family Medicine; Visit Provider Obstetrics & Gynecology
PROC: 10D00Z1 Extraction of Products of Conception, Low, Open Approach (ICD-10-PCS; CPT 59514; principal; 2023-06-10 20:15)
DX: O26.893 Other specified pregnancy related conditions, third trimester (principal); Z37.0 Single live birth; Z3A.39 39 weeks gestation of pregnancy; Z67.91 Unspecified blood type, Rh negative; O77.0 Labor and delivery complicated by meconium in amniotic fluid; O99.344 Other mental disorders complicating childbirth; F41.9 Anxiety disorder, unspecified; O99.214 Obesity complicating childbirth; E66.01 Morbid (severe) obesity due to excess calories; O36.8330 Maternal care for abnormalities of the fetal heart rate or rhythm, third trimester, not applicable or unspecified
CPT/HCPCS: 36415; 74018; 85025; 85461; 86592; 86850; 86900; 86901; 88307; 90384; A9270; J0456; J0690; J1885; J2274; J2405; J2590; J2790; J2795; J3010; J3105; J7030; J7120